=== PATIENT | male | born 1945 ===

== ENCOUNTER 2018-02-02 14:11 | Emergency (ER) | payer SELFPAY ==
[2018-02-02 14:35] VITALS: BP 124/64
== END 2018-02-02 17:42 | disposition left against medical advice (07) ==
LOC: ED 14:11
DX: R05 Cough (principal); R09.89 Other specified symptoms and signs involving the circulatory and respiratory systems; R06.2 Wheezing; Z53.21 Procedure and treatment not carried out due to patient leaving prior to being seen by health care provider